=== PATIENT | male | born 1995 | race Caucasian/White ===

== ENCOUNTER 2021-07-23 09:30 | Emergency (ER) | payer OTHER ==
[2021-07-23 09:37] VITALS: BP 130/83; PULSE 60; TEMP 98.1; BMI 25.0
== END 2021-07-23 11:34 | disposition home or self-care (01) ==
LOC: JERFT 09:30
DX: S60.012A Contusion of left thumb without damage to nail, initial encounter (principal); W23.0XXA Caught, crushed, jammed, or pinched between moving objects, initial encounter; Y92.9 Unspecified place or not applicable
CPT/HCPCS: 73140-TC-LT-FY; 99284-25